=== PATIENT | male | born 1980 | race Caucasian/White ===

== ENCOUNTER 2025-05-23 03:10 | Emergency (ER) | payer SELFPAY ==
[~2025-05-23] VITALS: Ht 182.9 cm; Wt 108.8 kg
[2025-05-23 03:18] VITALS: BP 186/113; PULSE 68; RESP 18; TEMP 97.8; O2SAT 99
== END 2025-05-23 04:14 | disposition left against medical advice (07) ==
LOC: ER 03:11
DX: R10.11 Right upper quadrant pain (principal)
CPT/HCPCS: 99281